=== PATIENT | male | born 1995 | race Caucasian/White ===

== ENCOUNTER 2022-08-24 17:53 | Emergency (ER) | payer BC ==
[2022-08-24 19:30] VITALS: BP 121/74
[2022-08-24] MEDS ORDERED: AMOX/K CLAV875 M1 PO (19:37)
[2022-08-24 19:47] VITALS: BP 121/74
== END 2022-08-24 20:06 | disposition home or self-care (01) | DRG 153 ==
LOC: ED 17:53
DX: J01.90 Acute sinusitis, unspecified (principal); Z20.822 Contact with and (suspected) exposure to COVID-19